=== PATIENT | female | born 1985 | race African-American/Black ===

== ENCOUNTER 2018-07-24 10:31 | Emergency (ER) | payer OTHER ==
[2018-07-24] MEDS: CHARCOAL ACTIVATED LIQUID 25 GM/120 ML BTL PO (10:59)
[2018-07-24] MEDS: NS 1,000 ML IV ×3 (10:59→20:50)
[2018-07-24 11:04] LABS: BASO % 0.5 % (0.0-1.0); EOS % 0.5 % (0.0-3.0); HEMATOCRIT 36.4 % (36.0-47.0); HEMOGLOBIN 12.1 g/dl (12.0-15.5); IMMATURE GRANULOCYTE % 0.3 % (0-3.0); LYMPH # 2.6 10^3/uL (1.5-4.5); LYMPH % 33.6 % (24.0-44.0); MEAN CORPUSCULAR HEMOGLOBIN 33.8 pg (27.0-33.0); MEAN CORPUSCULAR HGB CONC 33.2 g/dl (32.0-36.5); MEAN CORPUSCULAR VOLUME 101.7 fl (80.0-96.0); MONO # 0.5 10^3/uL (0.0-0.8); MONO % 5.9 % (0.0-5.0); NEUTROPHILS # 4.5 10^3/uL (1.8-7.7); NEUTROPHILS % 59.2 % (36.0-66.0); PLATELET COUNT, AUTOMATED 304 10^3/uL (150-450); RED BLOOD COUNT 3.58 10^6/uL (4.00-5.40); RED CELL DISTRIBUTION WIDTH 12.3 % (11.5-14.5); WHITE BLOOD COUNT 7.6 10^3/uL (4.0-10.0)
[2018-07-24 11:07] LABS: BEDSIDE GLUCOSE 85 MG/DL (70-105)
[2018-07-24 11:39] LABS: ALBUMIN 3.9 GM/DL (3.2-5.2); ALBUMIN/GLOBULIN RATIO 0.91 (1.00-1.93); ALKALINE PHOSPHATASE 82 U/L (45-117); ALT/SGPT 24 U/L (12-78); ANION GAP 7 MEQ/L (8-16); AST/SGOT 15 U/L (7-37); BILIRUBIN,DIRECT 0.1 MG/DL (0.0-0.2); BILIRUBIN,TOTAL 0.6 MG/DL (0.2-1.0); BLOOD UREA NITROGEN 10 MG/DL (7-18); CALCIUM LEVEL 8.5 MG/DL (8.5-10.1); CARBON DIOXIDE LEVEL 25 MEQ/L (21-32); CHLORIDE LEVEL 108 MEQ/L (98-107); CPK CREATINE PHOSPHOKINASE 59 U/L (26-192); CREATININE FOR GFR 0.85 MG/DL (0.55-1.30); GLOMERULAR FILTRATION RATE > 60.0 (>60); GLUCOSE, FASTING 86 MG/DL (70-100); POTASSIUM SERUM 3.9 MEQ/L (3.5-5.1); SALICYLATE LEVEL < 1.7 MG/DL (5.0-30.0); SODIUM LEVEL 140 MEQ/L (136-145); TOTAL PROTEIN 8.2 GM/DL (6.4-8.2)
[2018-07-24 11:40] LABS: ACETAMINOPHEN LEVEL < 2.0 UG/ML (10.0-30.0); CONTROL LINE HCG INT CTR LINE PRESENT; ETHYL ALCOHOL (ETHANOL) < 0.003 % (0.000-0.010); HCG, SERUM QUALITATIVE NEGATIVE (NEGATIVE)
[2018-07-24 12:23] LABS: AMPHETAMINES LEVEL URINE NEGATIVE (NEGATIVE); BARBITURATES URINE NEGATIVE (NEGATIVE); BENZODIAZEPINES URINE NEGATIVE (NEGATIVE); CANNABINOIDS URINE NEGATIVE (NEGATIVE); COCAINE METABOLITE URINE NEGATIVE (NEGATIVE); METHADONE URINE NEGATIVE (NEGATIVE); OPIATES URINE NEGATIVE (NEGATIVE); PHENCYCLIDINE URINE NEGATIVE (NEGATIVE)
== END 2018-07-25 06:31 | disposition short-term general hospital (02) ==
LOC: M ED 07-25 06:31
DX: F33.9 Major depressive disorder, recurrent, unspecified (principal); T50.992A Poisoning by other drugs, medicaments and biological substances, intentional self-harm, initial encounter; X58.XXXA Exposure to other specified factors, initial encounter; Y92.89 Other specified places as the place of occurrence of the external cause; Z79.899 Other long term (current) drug therapy; Z79.3 Long term (current) use of hormonal contraceptives; Z88.1 Allergy status to other antibiotic agents; Z88.2 Allergy status to sulfonamides
CPT/HCPCS: 93005

== ENCOUNTER → 2018-08-23 | Outpatient (REF) | payer OTHER ==
[~2018-08-23] MED LIST: CLON0.5T8; FLUO20CA19; NUVAMIS2; ZOLP10TA2
[2018-08-23 13:24] LABS: BACTERIA, URINE AUTO NEGATIVE (NEGATIVE); MUCUS, URINE SMALL (NEGATIVE); RBC, URINE AUTO 7 /HPF (0-3); SQUAMOUS EPITHELIAL CELL UR AU 4 /HPF (0-6); WBC, URINE AUTO 2 /HPF (0-3)
[2018-08-23 15:24] LABS: CHLAMYDIA DNA AMPLIFICATION NEGATIVE (NEGATIVE); GC DNA AMPLIFICATION NEGATIVE (NEGATIVE)
== END ==
LOC: M LAB REF 12:15
PROVIDERS: ATTEND Physician Assistant
DX: N76.0 Acute vaginitis (principal)

== ENCOUNTER → 2019-01-09 | Outpatient (CLI) | payer OTHER ==
--- NOTE | 2019-01-09 09:42 | REP ---
Clinical: Shortness of breath . Comparison: None . Technique: PA and lateral. Findings: The mediastinum and cardiac silhouette are normal. The lung cristobal are clear and without acute consolidation, effusion, or pneumothorax. The skeletal structures are intact and normal. Impression: 1. No acute cardiopulmonary process. Electronically Signed by Devyn Mendez MD 01/09/2019 09:33 A
== END ==
LOC: M WUC 09:19
PROVIDERS: ATTEND Physician Assistant
DX: R06.02 Shortness of breath (principal)

== ENCOUNTER → 2019-08-06 | Outpatient (REF) | payer OTHER ==
[~2019-08-06] MED LIST changes: +CLON0.5T2; -CLON0.5T8
== END ==
LOC: M LAB REF 12:52
PROVIDERS: ATTEND Physician Assistant
DX: J02.9 Acute pharyngitis, unspecified (principal)

== ENCOUNTER 2019-10-07 15:17 | Emergency (ER) | payer OTHER ==
[~2019-10-07] VITALS: Ht 165.1 cm; Wt 80.4 kg
[2019-10-07 15:17] VITALS: BP 139/90
[2019-10-07] MEDS ORDERED: OMEG12004 PO (15:32)
[2019-10-07] MEDS ORDERED: CEPH500C PO (15:32)
[2019-10-07] MEDS ORDERED: MULTCAP PO (15:32)
[2019-10-07] MEDS ORDERED: DOXY100C37 PO (16:15)
[2019-10-07] MEDS ORDERED: LIDOCAINE W/EPINEPHRINE 1% 20ML VIAL SC ONE (16:15)
== END 2019-10-07 16:21 | disposition home or self-care (01) ==
LOC: EEVIPCON 15:17 → M ED 15:17
DX: L02.11 Cutaneous abscess of neck (principal); L02.416 Cutaneous abscess of left lower limb; E03.9 Hypothyroidism, unspecified; F41.9 Anxiety disorder, unspecified; F32.9 Major depressive disorder, single episode, unspecified; Z79.3 Long term (current) use of hormonal contraceptives; Z79.899 Other long term (current) drug therapy; Z88.2 Allergy status to sulfonamides

== ENCOUNTER → 2020-12-19 | Outpatient (CLI) | payer OTHER ==
[~2020-12-19] MED LIST changes: +CEPH500C PO; +DOXY100C37 PO; -FLUO20CA19; +FLUO20CA22; +MULTCAP PO; +OMEG12004 PO
--- NOTE | 2020-12-19 17:04 | REP ---
INDICATION: FOCAL BREAST PAIN; RIGHT BREAST PAIN. History provided on the requisition is of right breast pain x1 year with clinician breast exam noting a tender cystic structure 1 cm in diameter at 11 o'clock, 6 cm from the areola. Patient states that she cannot feel a lump. Reports pain mostly in the upper outer quadrant and nipple. COMPARISON: no comparison breast imaging. TECHNIQUE: Routine views of each breast were obtained and diagnostic magnified focal spot-compression images of the right breast were obtained. 3D tomography was carried out. Targeted right breast sonography is performed. FINDINGS: Heterogeneously dense breast parenchyma is observed. This pattern may inhibit the sensitivity mammography. Symmetric breast parenchymal markings are seen however. No dominant density is seen in either breast. No architectural distortion or microcalcification is seen. No worrisome skin changes appreciated. Nipple silhouettes are unremarkable bilaterally. The [place] volumetric breast density pattern is C. Targeted right breast sonography: The entire right breast is scanned. Heterogeneous fibroglandular background echotexture is seen. No cyst or mass is observed in the right breast. Normal appearing lymph nodes are seen in the right axilla. The largest of these measures 1.0 x 1.7 x 0.6 cm. This and the other a lymph nodes have a benign appearance.. IMPRESSION: BIRADS/ACR category 1 negative mammogram. This patient's estimated Tyrer-Cuzick lifetime risk assessment for breast cancer is 21.6%. Enhanced screening in the form of annual bilateral breast MRI scanning is warranted. Bilateral breast MRI scanning is recommended annually, beginning 6 months from now. This mammogram was interpreted with the aid of an FDA-approved computer-aided detection system. The patient states she had a clinical breast exam in November of 2020. The patient letter being requested is M2 dense. RECOMMENDATION: Repeat screening mammography recommended 1 year (for women over 40). Clinical follow-up. Bilateral breast MRI scanning recommended in 6 months. <Electronically signed by Figueroa Power > 12/19/20 [id number]
== END ==
LOC: M WHC 14:29
PROVIDERS: ATTEND Emergency Medicine
DX: N64.4 Mastodynia (principal)
CPT/HCPCS: 76642; 77066; G0279